=== PATIENT | male | born 1990 | race Two or more races ===

== ENCOUNTER 2024-09-27 20:02 | Emergency (ER) | payer MEDICAID ==
[~2024-09-27] VITALS: Ht 170.2 cm; Wt 162.0 kg
--- NOTE | 2024-09-27 20:08 | ED.PDOC ---
Back pain HPI HPI Comments 34 y/o morbidly obese M presents with c/c avulsion wound to dorsal side of his left foot, with associated pain. Patient reports injuring himself after dropping a sheet of metal from hip height onto his foot. Bleeding controlled. Unknown last tetanus shot. Denies any numbness, tingling, or further associated symptoms. Denies any significant medical history. Time Seen by MD: 20:07 Reviewed Notes: Nurses Notes, Medications, Allergies Allergies: Coded Allergies: NO KNOWN ALLERGIES (Unverified , 09/27/24) Information Source: Patient Mode of Arrival: Ambulatory Timing: Hours Duration: Since onset Severity: Mild Past Medical History Past Medical History (Other): morbildy obese Surgical History: Denies all surgeries Family History Family History: Unknown Social History Smoker: Non-Smoker Alcohol: Denies ETOH Use Drugs: Denies Drug Use Lives In: Home All Other Systems: Reviewed and Negative (comprehensive review of systems are negative unless otherwise stated in HPI) Physical Exam General Appearance: No Apparent Distress, Obese HEENT: Normal ENT Inspection, Pharynx Normal, TMs Normal Neck: Full Range of Motion, Non-Tender, Normal, Normal Inspection Respiratory: Chest Non-Tender, Lungs Clear, No Accessory Muscle Use, No Res piratory Distress, Normal Breath Sounds Cardiovascular: No Edema, No JVD, No Murmur, No Gallop, Normal Peripheral Pulses, Regular Rate/Rhythm Breast Exam: Deferred Gastrointestinal: No Organomegaly, Non Tender, No Pulsatile Mass, Normal Bowel Sounds, Soft Genitalia: Deferred Pelvic: Deferred Rectal: Deferred Extremities: No calf tenderness, Normal capillary refill, Normal inspection, Normal range of motion, Non-tender, No pedal edema Musculoskeletal : Apperance: Normal Neurologic: Alert, director food and beverage II-XII nml as Tested, No Motor Deficits, Normal Affect, Normal Mood, No Sensory Deficits Cerebellar Function: Normal Reflexes: Normal Skin: Dry, Normal Color, Warm, Wounds (proximal dorsal aspect avulsion 2.5cm approximate linear) Lymphatic: No Adenopathy Was a procedure done? Was a procedure done?: Yes Sedation Sedation?: No Informed consent obtained: Yes Laceration Repair : Location proximal dorsal aspect avulsion Length 2.5cm approximate Anesthetic: Lidocaine, Without epi Laceration Repair Prep: Saline, Betadine, Shur-Clens, by Irrigation, Manual Scrub Laceration Repair Wound Comple: subcut tissue repair Laceration Repair: Number of sutures (5), SQ, Simple Informed consent obtained: Yes Risks, benefits, and alternati: Yes Back Pain Differential Dx Differential Diagnosis: Fracture, Musculoskeletal Pain, Other (laceration; alvusion ) X-Ray, Labs, Meds, VS Vital Signs Date Time Temp Pulse Resp B/P (MAP) Pulse Ox O2 Delivery O2 Flow Rate FiO2 09/27/24 20:41 99.3 85 18 116/96 (103) 98 99.3 X-Ray, Labs, Meds, VS Comment Left foot FINDINGS/IMPRESSION: There is widening of the interval between the 1st and 2nd metatarsal bases up to 6 mm consistent with Lisfranc's injury. 9 mm density superior to the dorsal metatarsal bases on the lateral view which most likely represents an avulsed bony fragment with no obvious donor site noted. There is significant dorsal foot soft tissue edema. See procedure note, Patient placed in left foot boot and crutches. Patient given tetanus and 1 g Ancef IM. Advised no weight-bearing utilized crutches and ortho boot until follow up with ortho foot and ankle. Advised to rest, elevate left foot, [id number] ibuprofen as needed for the pain per labeled dosing instruc tions. ER return precautions given patient indicates understanding agrees with discharge plan of care. Time of 1ST Reevaluation: 20:08 Reevaluation 1ST: Unchanged Time of 2ND Reevaluation: 23:04 Reevaluation 2ND: Improved Patient Education/Counseling: Diagnosis, Treatment, Prognosis, Need For Follow Up Family Education/Counseling: No Family Present SEPSIS Sepsis Screen Physician Orders L Foot 3 View Xray (09/27/24 20:53) Vital Signs Date Time Temp Pulse Resp B/P (MAP) Pulse Ox O2 Delivery O2 Flow Rate FiO2 09/27/24 20:41 99.3 85 18 116/96 (103) 98 99.3 Departure 1 Departure Time of Disposition: 23:03 Impression: Primary Impression: Laceration of foot excluding toes without complication Qualified Codes: S91.312A - Laceration without foreign body, left foot, initial encounter Additional Impressions: Lisfranc's sprain Qualified Codes: S93.622A - Sprain of tarsometatarsal ligament of left foot, initial encounter Avulsion fracture of metatarsal bone of left foot Qualified Codes: S92.302A - Fracture of unspecified metatarsal bone(s), left foot, initial encounter for closed fracture Disposition: HOME / SELF CARE / HOMELESS Condition: Stable Discharged With: Self Critical Care Note Critical Care Time?: No Stability Stability form required: No Heart Score Heart Score: Heart Score Response (Comments) Value History N/A 0 EKG N/A 0 Age N/A 0 Risk Factors N/A 0 Troponin N/A 0 Total 0 I personally scribed for ER ([email or web address]) on 09/27/24 at 21:01. Electronically submitted by Cruz Pardo ([email or web address]). I personally scribed for ER ([email or web address]) on 09/27/24 at 22:06. Electronically submitted by Cruz Pardo ([email or web address]). [facility] Sep 27, 2024 20:08 ER Sep 27, 2024 21:01
[2024-09-27 20:41] VITALS: BP 116/96; PULSE 85; RESP 18; TEMP 99.3; O2SAT 98
--- NOTE | 2024-09-27 21:42 | DVH ---
CLINICAL INDICATION: s/p foot injury with metal dorsal aspect TECHNIQUE: 3 radiographic views of the left foot were obtained. Comparison: None FINDINGS/IMPRESSION: There is widening of the interval between the 1st and 2nd metatarsal bases up to 6 mm consistent with Lisfranc's injury. 9 mm density superior to the dorsal metatarsal bases on the lateral view which most likely represents an avulsed bony fragment with no obvious donor site noted. There is significant dorsal foot soft tissue edema.
[2024-09-27] MEDS ORDERED: ceFAZolin IM 1GM/2.5ML STERILE WATER IM ONE (23:15)
[2024-09-27] MEDS: LIDOCAINE 1% HCL (LOCAL ANESTH.) INJ 20ML MDV IJ ONE (23:49)
[2024-09-27] MEDS: TETANUS-DIPTH-ACEL PERTUSSIS 0.5ML SYR Tdap IM ONE (23:51)
[2024-09-28] MEDS: cefTRIAXone SOD 1,000 MG VL IM ONE (00:10)
== END 2024-09-28 00:12 | disposition home or self-care (01) ==
LOC: ER 20:02
DX: S92.302A Fracture of unspecified metatarsal bone(s), left foot, initial encounter for closed fracture (principal); S91.312A Laceration without foreign body, left foot, initial encounter; S93.602A Unspecified sprain of left foot, initial encounter; Z68.43 Body mass index [BMI] 50.0-59.9, adult; W20.8XXA Other cause of strike by thrown, projected or falling object, initial encounter; Y93.89 Activity, other specified; Y92.89 Other specified places as the place of occurrence of the external cause; Y99.8 Other external cause status; E66.01 Morbid (severe) obesity due to excess calories
CPT/HCPCS: 12001; 73630; 90471; 90715; 96372; 99284; J0696; J2003; J0690